=== PATIENT | male | born 1970 | race Caucasian/White ===

== ENCOUNTER 2017-12-20 08:05 | Inpatient (IN) | payer MEDICARE, MEDICAID ==
[~2017-12-20] VITALS: Ht 180.3 cm; Wt 96.2 kg
[~2017-12-20 08:05] MED LIST: BENZ2TAB10 PO; HALO5 PO; RISPC50 IM
[2017-12-20] MEDS ORDERED: MAG HYDROX/AL HYDROX/SIMETH ES 30 ML SUSPENSION UDCUP PO PRN (09:15)
[2017-12-20] MEDS ORDERED: MAGNESIUM HYDROXIDE SUSPENSION 30 ML UDCUP PO PRN (09:15)
[2017-12-20] MEDS ORDERED: ZOLPIDEM TARTRATE 10 MG TABLET PO PRN (09:15)
[2017-12-20] MEDS ORDERED: HALOPERIDOL 5 MG TABLET PO PRN (09:15)
[2017-12-20] MEDS ORDERED: ACETAMINOPHEN 325 MG TABLET PO PRN (09:15)
[2017-12-20] MEDS ORDERED: LORazepam 2 MG TABLET PO PRN (09:15)
[2017-12-20 09:38] VITALS: BP 126/104
[2017-12-20 10:20] VITALS: BP 126/70
[2017-12-20] MEDS ORDERED: PNEUMOCOCCAL VACCINE POLYVALENT 0.5 ML VIAL [PPSV23] IM ONE (14:30)
[2017-12-20 16:16] VITALS: BP 117/70
[2017-12-20] MEDS: CloNIDine HCL 0.1 MG TABLET PO SCH (16:55)
[2017-12-21 06:01] VITALS: BP 124/70
[2017-12-21 07:40] LABS: BASOPHILS % (AUTO) 0.9 % (0.0-2.0); EOSINOPHILS % (AUTO) 5.1 % (1.0-6.0); HEMATOCRIT 46.8 % (41-53); HEMOGLOBIN 15.9 g/dL (13.5-17.5); LYMPHOCYTES % (AUTO) 33.1 % (22.0-44.0); MEAN CORPUSCULAR HEMOGLOBIN 33.3 pg (26.0-34.0); MEAN CORPUSCULAR VOLUME 98 fL (80-100); MONOCYTES # (AUTO) 0.5 K/uL (0.1-1.0); MONOCYTES % (AUTO) 7.6 % (2.0-9.0); NEUTROPHILS # (AUTO) 3.3 K/uL (1.8-7.7); NEUTROPHILS % (AUTO) 53.3 % (40.0-70.0); PLATELET COUNT (AUTO) 144 K/uL (150-450); RED BLOOD CELL COUNT(AUTO) 4.78 MIL/uL (4.50-5.90); RED CELL DISTRIBUTION WIDTH 13.4 % (11.5-14.5)
[2017-12-21 08:09] LABS: ALANINE AMINOTRANSFERASE 22 U/L (12-78); ALBUMIN 3.5 g/dL (3.4-5.0); ALKALINE PHOSPHATASE 46 U/L (46-116); ANION GAP 9 mmol/L (8-16); ASPARTATE AMINOTRANSFERASE 17 U/L (15-37); BILIRUBIN,TOTAL 0.5 mg/dL (0.1-1.0); CALCIUM, TOTAL 9.2 mg/dL (8.8-10.5); CARBON DIOXIDE 25 mmol/L (22-29); CHLORIDE 108 mmol/L (98-107); CHOL/HDL RATIO 3.2 (4.2-7.3); CHOLESTEROL 154 mg/dL (131-200); CREATININE 0.85 mg/dL (0.60-1.30); GLOMERULAR FILTR. RATE CALC > 60 mL/min (>60); GLUCOSE,RANDOM 111 mg/dL (70-110); HDL CHOLESTEROL 48 mg/dL (40-60); LDL CHOL (CALC.) 87 mg/dL (0-130); POTASSIUM 3.9 mmol/L (3.5-5.1); SODIUM SERUM 142 mmol/L (136-145); THYROID STIMULATING HORMONE 1.32 uIU/mL (0.36-3.74); TOTAL PROTEIN, SERUM 6.8 g/dL (6.4-8.2); TRIGLYCERIDES 95 mg/dL (15-150); UREA NITROGEN, BLOOD 14 mg/dL (7-18)
[2017-12-21 08:48] VITALS: BP 114/76
[2017-12-21] MEDS: CloNIDine HCL 0.1 MG TABLET PO SCH ×2 (10:25→17:14)
[2017-12-21] MEDS ORDERED: RisperiDONE MICROSPHERES 50 MG/2 ML SYRINGE IM SCH (11:00)
[2017-12-21 16:33] VITALS: BP 126/78
[2017-12-21] MEDS: RisperiDONE 3 MG TABLET PO SCH (17:14)
[2017-12-22 00:18] VITALS: BP 110/68
[2017-12-22 08:48] VITALS: BP 126/70
[2017-12-22] MEDS: CloNIDine HCL 0.1 MG TABLET PO SCH ×2 (09:02→16:16)
[2017-12-22] MEDS: RisperiDONE 3 MG TABLET PO SCH ×2 (09:02→16:16)
[2017-12-22 16:18] VITALS: BP 118/73
[2017-12-23 01:11] VITALS: BP 113/73
[2017-12-23 08:00] VITALS: BP 117/73
[2017-12-23] MEDS: RisperiDONE 3 MG TABLET PO SCH ×2 (08:57→16:42)
[2017-12-23] MEDS: CloNIDine HCL 0.1 MG TABLET PO SCH ×2 (08:57→16:42)
[2017-12-23 16:32] VITALS: BP 121/67
[2017-12-24 02:41] VITALS: BP 116/62
[2017-12-24 08:21] VITALS: BP 121/76
[2017-12-24] MEDS: RisperiDONE 3 MG TABLET PO SCH (08:48)
[2017-12-24] MEDS: CloNIDine HCL 0.1 MG TABLET PO SCH ×2 (08:48→16:13)
[2017-12-24 16:09] VITALS: BP 120/71
[2017-12-25 01:30] VITALS: BP 115/74
[2017-12-25 08:30] VITALS: BP 128/63
[2017-12-25] MEDS: CloNIDine HCL 0.1 MG TABLET PO SCH ×2 (08:55→16:30)
[2017-12-25] MEDS ORDERED: CLON-570 PO (15:31)
[2017-12-25] MEDS ORDERED: RISPC50 IM (15:31)
[2017-12-25 16:30] VITALS: BP 113/73
[2017-12-26 00:20] VITALS: BP 114/71
[2017-12-26] MEDS: CloNIDine HCL 0.1 MG TABLET PO SCH ×2 (08:12→17:09)
[2017-12-26 08:33] VITALS: BP 117/70
[2017-12-26 17:08] VITALS: BP 123/66
[2017-12-27 00:09] VITALS: BP 114/61
[2017-12-27 08:41] VITALS: BP 126/60
[2017-12-27] MEDS: CloNIDine HCL 0.1 MG TABLET PO SCH ×2 (09:14→17:33)
[2017-12-27 17:30] VITALS: BP 115/65
[2017-12-28 00:10] VITALS: BP 108/74
[2017-12-28 08:37] VITALS: BP 109/66
[2017-12-28] MEDS: CloNIDine HCL 0.1 MG TABLET PO SCH ×2 (09:53→16:20)
[2017-12-28 16:12] VITALS: BP 121/63
[2017-12-29 00:27] VITALS: BP 112/67
[2017-12-29 08:36] VITALS: BP 113/60
[2017-12-29] MEDS: CloNIDine HCL 0.1 MG TABLET PO SCH (08:49)
[2018-01-04] MEDS ORDERED: RisperiDONE MICROSPHERES 50 MG/2 ML SYRINGE IM SCH (09:00)
== END 2017-12-29 12:00 | disposition home or self-care (01) | DRG 885 ==
LOC: B2X 09:27
PROVIDERS: ADMIT Psychiatry & Neurology Psychiatry; ATTEND Psychiatry & Neurology Psychiatry
DX: F20.0 Paranoid schizophrenia (principal); F12.90 Cannabis use, unspecified, uncomplicated; R03.0 Elevated blood-pressure reading, without diagnosis of hypertension; Z28.21 Immunization not carried out because of patient refusal
CPT/HCPCS: 84439; 84443; G0480; J2794